=== PATIENT | female | born 1985 | race Caucasian/White ===

== ENCOUNTER 2019-12-18 13:17 | Emergency (ER) | payer SELFPAY ==
--- NOTE | 2019-12-18 15:40 | PC.NURSE ---
Called [facility] patient no response
--- NOTE | 2019-12-18 15:50 | PC.NURSE ---
attempted to call patient to triage, no answer in waiting room. will attempt again in a few minutes.
== END 2019-12-18 16:04 | disposition left against medical advice (07) ==
PROVIDERS: Emergency Provider Internal Medicine; PCP Internal Medicine
DX: M79.605 Pain in left leg (principal); M79.604 Pain in right leg
CPT/HCPCS: 99281

== ENCOUNTER 2020-09-08 11:15 | Emergency (ER) | payer OTHER, SELFPAY ==
--- NOTE | ~2020-09-08 | XR_ITS ---
EXAMINATION: XR KNEE, LEFT CLINICAL INFORMATION: Left knee pain COMPARISON: None TECHNIQUE: Four views of the left knee. FINDINGS: Bones and soft tissues are normal. No fracture or joint effusion. Alignment is anatomic. Joint spaces are well maintained. No abnormal soft tissue calcification. XR/XR knee LT 3V IMPRESSION: Normal left knee.
[2020-09-08 11:25] VITALS: BP 145/97; PULSE 79; RESP 18; TEMP 36.8; O2SAT 100; BMI 29.1
--- NOTE | 2020-09-08 13:03 | ED.LOWEXIN ---
HPI - Extremity Injury (Lower) General Chief Complaint: Extremity Injury, Lower Stated Complaint: L KNEE PAIN Time Seen by Provider: 09/08/20 13:00 History of Present Illness HPI Narrative: Patient complains of left knee pain after slipping and falling on a rock 2 days ago, she can walk on it but it hurts there is no other injury no numbness no weakness no tingling Related Data Allergies Allergy/AdvReac Type Severity Reaction Status Date / Time No Known Allergies Allergy Verified 09/08/20 11:24 [No Known Allergies*] Review of Systems Review of Systems: Positive for left knee pain and swelling Negatives are no head injury no headache no neck pain no back pain no numbness weakness or tingling no redness no fever no chills Yes all other systems are reviewed and are negative PMFSH Past Medical History Source: nursing notes reviewed Surgical History (Updated 09/08/20 @ 11:28 by Tarsha Murillo RN) Hx of cholecystectomy Social History Social History Advance Directives: Yes Advance Directives Information Provided: Yes Advance Directives on File: No Patient : No Physical Exam Vital Signs: Vital Signs: Last Vital Signs Temp 98.3 F 09/08/20 11:25 Pulse 79 09/08/20 11:25 Resp 18 09/08/20 11:25 BP 145/97 H 09/08/20 11:25 Pulse Ox 100 09/08/20 11:25 Body Mass Index 29.1 General appearance no acute distress Head is normocephalic atraumatic Neck is supple Respiratory no distress The back full range of motion Extremities the left knee has some mild ecchymosis over the anterior knee and some mild swelling, patient is walking with minimal limp has full range of motion no obvious effusion no redness no warmth, neurovascular intact distal Other extremities normal Course Course Course Narrative: X-ray of the left knee did not show any bony injury and patient is ambulating easily and will follow with orthopedics if needed if not better in a week Discharge Plan Discharge Clinical Impression: Left knee sprain, Contusion of knee, left Patient Disposition: Home, Self-Care Additional Instructions: X-ray of the left knee did not show any broken bone or any bony injury It is likely to get better on its own in a few days If it is failing to improve follow with orthopedist Referrals: Washington Quintana MD [Physician] - 10 days (Left knee sprain)
== END 2020-09-08 13:06 | disposition home or self-care (01) ==
PROVIDERS: Emergency Provider Emergency Medicine; PCP Internal Medicine
DX: S83.92XA Sprain of unspecified site of left knee, initial encounter (principal); S80.02XA Contusion of left knee, initial encounter; W01.0XXA Fall on same level from slipping, tripping and stumbling without subsequent striking against object, initial encounter; Y93.11 Activity, swimming; Y92.828 Other wilderness area as the place of occurrence of the external cause; Y99.8 Other external cause status
CPT/HCPCS: 73562; 99283

== ENCOUNTER 2020-11-15 11:38 | Emergency (ER) | payer OTHER, SELFPAY ==
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
[2020-11-15 11:59] VITALS: BP 132/94; PULSE 78; RESP 19; TEMP 36.6; O2SAT 100; BMI 31.3
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
[2020-11-15 13:46] LABS: UPreg QC Valid YES; Urine Pregnancy NEGATIVE (NEGATIVE)
[2020-11-15] MEDS: Acetaminophen 325 MG TABLET 975 MG PO (14:04)
--- NOTE | 2020-11-15 15:26 | PC.NURSE ---
pt needs to leave without ct results. pt has to picker son from school. pt removed collar. good neck rom.
== END 2020-11-15 15:27 | disposition left against medical advice (07) ==
PROVIDERS: Nurse Practitioner Family; Emergency Provider Emergency Medicine; PCP Internal Medicine
DX: S06.0X0A Concussion without loss of consciousness, initial encounter (principal); R42 Dizziness and giddiness; M54.50 Low back pain, unspecified; G44.309 Post-traumatic headache, unspecified, not intractable; M54.2 Cervicalgia; V43.62XA Car passenger injured in collision with other type car in traffic accident, initial encounter; Y93.9 Activity, unspecified; Y92.410 Unspecified street and highway as the place of occurrence of the external cause; Y99.9 Unspecified external cause status; Z79.899 Other long term (current) drug therapy
CPT/HCPCS: 70450; 72125; 81025; 99283; 99284

== ENCOUNTER 2021-01-19 12:03 | Outpatient (REF) | payer OTHER, SELFPAY ==
[2021-01-19 12:36] LABS: COVID-19 Test Positive (Negative)
== END 2021-01-19 12:04 | disposition home or self-care (01) ==
LOC: HO.LAB 12:03
PROVIDERS: Visit Provider Internal Medicine
DX: Z20.822 Contact with and (suspected) exposure to COVID-19 (principal)
CPT/HCPCS: 36415; 87635; C9803

== ENCOUNTER 2021-10-22 14:35 | Emergency (ER) | payer OTHER, SELFPAY ==
[2021-10-22 14:36] VITALS: BP 125/59; PULSE 68; RESP 17; TEMP 36.6; O2SAT 100; BMI 32.9
== END 2021-10-22 17:44 | disposition left against medical advice (07) ==
PROVIDERS: Emergency Provider Emergency Medicine
DX: N64.4 Mastodynia (principal)
CPT/HCPCS: 99281

== ENCOUNTER 2023-03-11 10:16 | Emergency (ER) | payer OTHER, SELFPAY ==
[2023-03-11 10:40] VITALS: BP 114/70; PULSE 76; RESP 20; TEMP 36.5; O2SAT 99; BMI 34.5
--- NOTE | 2023-03-11 11:03 | ED.DENTAL ---
HPI - Dental/Oral General Chief complaint: Dental/Oral Stated complaint: Facial swelling Time Seen by Provider: 03/11/23 11:02 Source: patient Mode of arrival: ambulatory Limitations: no limitations History of Present Illness HPI Narrative: patient is a 37-year-old female who presents emergency department for evaluation reporting concern for a dental infection. She reports a prior infection to the same area last month for which she completed a course of antibiotics and her pain/ swelling improved, she did not follow-up with a dentist. She states that she awoke today with notable swelling to the left side of her face with some mild discomfort. of note she does report that she is currently 12 weeks , no -related concerns. Related Data Previous Rx's Medication Instructions Recorded amoxicillin 500 mg tablet 500 mg PO TID #30 tabs 03/11/23 Allergies Allergy/AdvReac Type Severity Reaction Status Date / Time No Known Allergies Allergy Verified 03/11/23 10:42 [No Known Allergies*] Review of Systems Review of Systems: Yes all other systems are reviewed and are negative PMFSH Past Medical History Attestation statement: The following information was validated with the patient. Source: old records reviewed Medical History Kidney stones Surgical History Hx of tonsillectomy Hx of cholecystectomy Physical Exam Vital Signs: Vital Signs: Last Vital Signs Temp 97.7 F 03/11/23 10:40 Pulse 76 03/11/23 10:40 Resp 20 03/11/23 10:40 BP 114/70 03/11/23 10:40 Pulse Ox 99 03/11/23 10:40 O2 Del Method Room Air 03/11/23 10:40 BMI result Body Mass Index 34.5 Appearance: Alert. Oriented X3. No acute distress. Head: Normal external exam. Normocephalic. Atraumatic. Eyes: PERRLA. EOMI. Conjunctiva and sclera normal. Eyelids normal. ENT: EAC normal. TM's Normal. Pharynx normal. Uvula midline. Moist mucous membranes.? ?No trismus noted.? No drooling noted.? No muffled voice noted. Dentition:? Patient with poor dentition throughout with multiple old fractured teeth with multiple dental caries.? Gingival within normal limits.? No fluctuance.? Not consistent with peritonsillar abscess. Not consistent with dental abscess.? No salivary duct obstruction noted. Neck: Normal inspection. Neck supple. FROM. No adenopathy. Thyroid Normal. No meningeal signs. No neck mass noted.? Trachea midline. CVS: Normal heart rate and rhythm. Heart sound normal. No murmurs noted. Pulses normal throughout. Respiratory: No respiratory distress. Painless inspiration. Breath sounds normal. No wheezes/rales/rhonchi noted. Chest nontender. ?No accessory muscle usage noted or decreased air movement noted. Back:? Full range of motion noted. Skin: Skin warm and dry.? Normal skin color.? Normal skin turgor. No rashes/lesions/lacerations noted. Extremities: Extremities exhibit normal range of motion.? Extremities nontender. Neuro: Oriented X 3.? No motor deficit.? No sensory deficit.? Reflexes normal. Medical Decision Making Medical Decision Making MDM Narrative: Patient is a 37-year-old female who presents emergency department for evaluation of concern for dental infection, she is notable swelling to the left buccal mucosa and gingiva, no significant erythema, fluctuance, evidence of abscess. No peritonsillar or retropharyngeal abscess. Not consistent with Silvano's angina. Atraumatic in nature, unlikely any facial fracture. No evidence of sepsis. Discussed plan of care with patient, will send prescription for antibiotic to pharmacy advised follow-up with dental provider. All questions answered. Stable for discharge. Differential Diagnosis Differential Diagnoses: The differential diagnosis associated with the presentation includes ( As noted above) Admission/Observation Consideration of admission/observation: Escalation of care including admission/observation considered External Record Review External record reviewed: Outpatient record Prescription Management I considered prescription management with: Pain Medication ( acetaminophen) and Antibiotic Discharge Plan Discharge Clinical Impression: Dental caries, Toothache Patient Disposition: Home, Self-Care Instructions: Toothache (ED) Additional Instructions: Complete the entire course of antibiotics as prescribed. You will need to follow-up with a dental provider as this has been recurrent. Return back to emergency department any new or worsening symptoms or concerns. Prescriptions: New amoxicillin 500 mg tablet 500 mg PO TID Qty: 30 0RF Referrals: Physician,Unknown J [Primary Care Provider] -
== END 2023-03-11 11:17 | disposition home or self-care (01) ==
PROVIDERS: Emergency Provider Emergency Medicine
DX: K02.9 Dental caries, unspecified (principal)
CPT/HCPCS: 99282; 99283